=== PATIENT | female | born 1940 | race Two or more races ===

== ENCOUNTER 2016-06-27 08:10 | Emergency (ER) | payer OTHER ==
[~2016-06-27] VITALS: Ht 157.5 cm; Wt 90.7 kg
[~2016-06-27 08:10] MED LIST: ESOM40CA39 PO; FLUOXETINE PO; FLUT500M6; FURO40TA4 PO; KLORCON; METF-312 PO; METFORMIN; METO50TA7 PO; NITR0.4D10; SIMV20TA90 PO; SPIR25TA88 PO
[2016-06-27 10:30] VITALS: BP 141/96
[2016-06-27] MEDS ORDERED: ONDANSETRON ODT 4 MG TAB PO ONE (11:15)
[2016-06-27] MEDS ORDERED: KETOROLAC TROMETH 60MG/2ML VIAL IM ONE (11:15)
== END 2016-06-27 13:13 | disposition home or self-care (01) ==
LOC: ER 08:10 → EDBD 08:10 → ER 13:13
DX: S32.019A Unspecified fracture of first lumbar vertebra, initial encounter for closed fracture (principal); M79.1 Myalgia; M43.16 Spondylolisthesis, lumbar region; I48.91 Unspecified atrial fibrillation; J45.909 Unspecified asthma, uncomplicated; I11.0 Hypertensive heart disease with heart failure; I50.9 Heart failure, unspecified; E78.5 Hyperlipidemia, unspecified; I25.2 Old myocardial infarction; Z88.6 Allergy status to analgesic agent; Z88.0 Allergy status to penicillin; W19.XXXA Unspecified fall, initial encounter; Y93.89 Activity, other specified; Y99.8 Other external cause status; Y92.89 Other specified places as the place of occurrence of the external cause
CPT/HCPCS: 72100; 96372; 99284; J1885; Q0162

== ENCOUNTER 2016-06-29 15:17 | Emergency (ER) | payer OTHER ==
[~2016-06-29] VITALS: Ht 157.5 cm; Wt 68.0 kg
[2016-06-29 15:38] VITALS: BP 165/90
== END 2016-06-29 16:33 | disposition left against medical advice (07) ==
LOC: ER 15:17 → EDBD 15:17 → ER 16:33
DX: R06.02 Shortness of breath (principal); Z53.21 Procedure and treatment not carried out due to patient leaving prior to being seen by health care provider
CPT/HCPCS: 93005

== ENCOUNTER 2018-08-17 10:19 | Inpatient (IN) | payer OTHER ==
[~2018-08-17] VITALS: Ht 157.5 cm; Wt 100.6 kg
--- NOTE | 2018-08-17 08:15 | NUR ---
CPAP Patient reports the use of an CPAP device nightly at home. Requests that APAP therapy be continued while hospitalized. Paged On-call hospitalist, Raiza Ames, to inform of patients requests for CPAP. Orders received to begin CPAP therapy during hours of sleep. RT notified of new order.
[~2018-08-17 10:19] MED LIST changes: +MET5XLT PO; -METF-312 PO; +METF-370 PO; -METO50TA7 PO
[2018-08-17] MEDS ORDERED: FUROSEMIDE 40 MG/4 ML VIAL IV ONE (10:45)
[2018-08-17 11:15] LABS: Basophils # (auto) 0.1 uL; Basophils % (auto) 1.1 % (0.0-2.0); Eosinophils # (auto) 0.2 uL; Hematocrit 35.1 % (36.0-46.0); Hemoglobin 11.1 g/dL (12.2-16.2); Lymphocytes % (auto) 13.1 % (10.0-50.0); Mean Corpuscular Hemoglobin 28.6 pg (28.0-32.0); Mean Corpuscular Hgb Conc. 31.5 g/dL (32.0-36.0); Mean Corpuscular Volume 90.7 fL (80.0-100.0); Monocytes # (auto) 0.4 uL; Monocytes % (auto) 5.5 % (0.0-12.0); Neutrophils % (auto) 78.3 % (37.0-80.0); Platelet Count (auto) 211 10^3/uL (140-450); Red Blood Cells 3.86 10^6/uL (4.0-5.20); Red Cell Distribution Width 14.5 % (11.8-14.3); White Blood Cell 7.6 10^3/uL (4.4-10.8)
[2018-08-17 11:32] LABS: Alanine Aminotransferase 18 U/L (13-56); Albumin 3.5 g/dL (3.4-5.0); Anion Gap 6 (5-15); Aspartate Aminotransferase 13 U/L (15-37); BUN/Creatinine Ratio 28.7; Blood Urea Nitrogen 31 mg/dL (7-18); Calcium 8.4 mg/dL (8.5-10.1); Carbon Dioxide 26 mmol/L (21-32); Chloride 110 mmol/L (98-107); GFR African American 63 mL/min; GFR Non-African American 52 mL/min; Glucose 90 mg/dL (74-106); Magnesium 2.6 mg/dL (1.6-2.6); Potassium 4.5 mmol/L (3.5-5.1); Sodium 142 mmol/L (136-145)
[2018-08-17 11:37] LABS: Alkaline Phosphatase 107 U/L (45-117); Bilirubin, Total 0.7 mg/dL (0.2-1.0); Total Protein 6.6 g/dL (6.4-8.2)
[2018-08-17] MEDS ORDERED: ONDANSETRON HCL 4 MG/2 ML VIAL IV PRN (13:45)
[2018-08-17] MEDS ORDERED: DEXTROSE (50%) 50ML SYRG IV PRN (13:45)
[2018-08-17] MEDS ORDERED: MORPHINE SULF INJ 2 MG/ML SYRINGE 1ML IV PRN (13:45)
[2018-08-17] MEDS ORDERED: NITROGLYCERIN 0.4 MG SL TAB SL PRN (13:45)
[2018-08-17 13:53] LABS: Urine Bacteria NONE SEEN /hpf (None Seen); Urine Blood Negative /uL (Negative); Urine Specific Gravity 1.008 (1.001-1.035); Urine WBC 1 /hpf (0 - 5)
[2018-08-17] MEDS ORDERED: IOHEXOL 350 MG/ML 100ML IJ ONE (14:02)
[2018-08-17 16:00] VITALS: BP 116/60
--- NOTE | 2018-08-17 16:10 | NUR ---
Telemetry admit from ER KAILYNNAHID admitted to Telemetry unit after SBAR received. Patient oriented to Marquise Perez, primary RN, unit, room, bed, and unit policies regarding patient care and visiting hours. Patient now on continuous telemetry monitoring, tele box # 11 and telemetry reading on arrival to unit is [id number]. Patient placed on bedside oxygen, weighed by bedscale and encouraged to call if they need something. All questions and concerns addressed, patient verbalized understanding.
[2018-08-17 16:30] VITALS: BP 116/60
[2018-08-17] MEDS: InsuLIN REG 1unit/0.01ml Soln (100units/ml) SC SCH ×2 (17:00→21:25)
[2018-08-17] MEDS: ACCU-CHEK COMFORT CURVE STRIP VI SCH ×2 (17:59→21:25)
[2018-08-17] MEDS: SPIRONOLACTONE 25 MG TAB PO SCH (18:22)
[2018-08-17] MEDS: FUROSEMIDE 20 MG TAB PO SCH (18:23)
[2018-08-17 18:40] LABS: Creatine Kinase IFCC 49 U/L (26-192)
--- NOTE | 2018-08-17 18:45 | NUR ---
Paged Dr. Phillips regarding cardiology consult for Dr. Brooke. Found out that Dr. Brooke is not available during the weekend, asking if he wanted another acetone button paster to be called in. Waiting for call back.
--- NOTE | 2018-08-17 19:01 | NUR ---
Dr. Phillips returned call, orders received. Call cardiology consult to Dr. Pickett.
--- NOTE | 2018-08-17 19:30 | NUR ---
OPENING SHIFT NOTE: Assumed care of patient. Patient sitting up in bed A&Ox4. On 4lmp o2 via NC. Patient reports feeling lightheaded with activity but is able to ambulate to the bathroom with standby assist. Patient experiences significant SOB with activity and when lying flat. Patient denies pain at this time. POC discussed with patient, who verbalizes understanding. Patient instructed to call for assistance when needed. Patient verbalizes understanding. Bed left in low locked position and bed alarm turned on. Will continue to monitor PRN.
[2018-08-17] MEDS: ATORVASTATIN 20 MG TAB PO SCH (21:24)
[2018-08-17 22:00] VITALS: BP 117/69
--- NOTE | 2018-08-18 | NUR ---
Patient reports a history of falls. However, declines staff assistance with ambulation. Patient prefers to ambulate independently.
--- NOTE | 2018-08-18 00:01 | NUR ---
Patient NPO at 0000 for possible heart cath tomorrow. Patient verbalizes understanding of NPO order.
[2018-08-18 00:07] LABS: Creatine Kinase IFCC 57 U/L (26-192)
[2018-08-18 03:36] VITALS: BP 117/69
[2018-08-18 04:37] VITALS: BP 111/65
[2018-08-18] MEDS: SPIRONOLACTONE 25 MG TAB PO SCH (05:51)
[2018-08-18] MEDS: FUROSEMIDE 20 MG TAB PO SCH (05:51)
[2018-08-18] MEDS: InsuLIN REG 1unit/0.01ml Soln (100units/ml) SC SCH ×4 (05:52→22:00)
[2018-08-18] MEDS: ACCU-CHEK COMFORT CURVE STRIP VI SCH ×4 (05:52→22:16)
--- NOTE | 2018-08-18 07:10 | NUR ---
RECEIVED REPORT FROM NIGHT RN AND ASSUMED CARE.
[2018-08-18 08:20] VITALS: BP 107/60
--- NOTE | 2018-08-18 08:30 | NUR ---
Respiratory note: PT IS OFF APAP. HR 83, RR 18, POX 94% ON 4L/M NC. NO SOB OR DISTRESS NOTED.
[2018-08-18] MEDS ORDERED: POTASSIUM CHL 10 Meq TABLET PO SCH (10:00)
[2018-08-18] MEDS ORDERED: METOPROLOL SUCCINATE XL 50 MG TAB PO SCH (10:00)
--- NOTE | 2018-08-18 10:15 | NUR ---
DR RODRIGUEZ AT BEDSIDE DISCUSSING WITH PT CARE PLAN, NO STRESS NOTED OR C/O PAIN STATED, CALL LIGHT WITHIN REACH.
--- NOTE | 2018-08-18 12:53 | NUR ---
DR TROY HERE TO SEE PT, POSS PT WILL BE D/C HOME TOMORROW. Addendum: 08/18/18 at 1653 by PURA NORIEGA RN RN DR PATINO HERE TO SEE PT, POSS PT WILL BE D/C HOME TOMORROW.
[2018-08-18 12:59] VITALS: BP 107/68
[2018-08-18 16:06] VITALS: BP 114/63
[2018-08-18] MEDS: FUROSEMIDE 40 MG/4 ML VIAL IV SCH (18:08)
--- NOTE | 2018-08-18 18:18 | NUR ---
UP TO REST ROOM AND THEN SITTING UP IN CHAIR, NO STRESS NOTED OR SOB, CALL LIGHT WITHIN REACH, INSTRUCTED TO CALL FRO ASSISTANCE IF NEEDED.
--- NOTE | 2018-08-18 19:01 | NUR ---
Patient care and report handed off to Lelo OLIVERA
--- NOTE | 2018-08-18 19:30 | NUR ---
Opening Shift Note Assumed care of patient, awake and alert x4. Patient noted sitting on the chair on 4L NC. Patient denies shortness of breath/pain at this time. Instructed on plan of care and to call for assistance as needed. Bed is locked in lowest position, side rails x 2 are up, call light is within reach, and bed alarm is on. Addendum: 08/18/18 at 2028 by SUPRIYA ELLIS RN RN Opening Shift Note Assumed care of patient, awake and alert x4. Patient noted sitting on the chair on 4L NC. Patient denies shortness of breath/pain at this time. Instructed on plan of care and to call for assistance as needed. Call light is within reach. Instructed patient to call us when she is ready to get back in bed, patient verbalized understanding.
--- NOTE | 2018-08-18 20:15 | NUR ---
PATIENT BACK IN BED Assisted patient back in bed. Patient noted to have mild shortness of breath with exertion. Patient is now sitting in bed in high fowlers position, on 4L NC. No S/S of distress noted. Instructed patient to call as needed. Bed is locked in lowest position, side rails x 2 are up, call light is within reach, and bed alarm is on.
[2018-08-18 21:50] VITALS: BP 118/78
[2018-08-18] MEDS: ATORVASTATIN 20 MG TAB PO SCH (22:10)
[2018-08-18] MEDS: POTASSIUM CHL 10 Meq TABLET PO SCH (22:10)
--- NOTE | 2018-08-18 22:21 | NUR ---
RT PAGED RT paged to place patient on CPAP.
--- NOTE | 2018-08-18 22:35 | NUR ---
PATIENT PLACED ON CPAP Patient placed on CPAP. Patient is on continuous oxygen monitoring oxygen saturation is 97% on 4L NC. Patient is semi fowlers position, with bed locked in lowest position, side rails x 2 are up, call light is within reach, and bed alarm is on. No S/S of distress/SOB or pain noted at this time.
--- NOTE | 2018-08-19 02:46 | NUR ---
Rounds Patient is sleeping in bed with even and unlabored respirations. Patient is on CPAP and continuous oxygen monitoring, 02: 98%. No S/S of distress/SOB or pain noted. Bed is locked in lowest position, side rails x 2 are up, call light is within reach, and bed alarm is on.
[2018-08-19 04:56] VITALS: BP 122/73
[2018-08-19 05:45] LABS: Calcium 8.9 mg/dL (8.5-10.1)
[2018-08-19 05:55] LABS: BUN/Creatinine Ratio 24.8
[2018-08-19] MEDS: FUROSEMIDE 40 MG/4 ML VIAL IV SCH (06:33)
[2018-08-19] MEDS: InsuLIN REG 1unit/0.01ml Soln (100units/ml) SC SCH ×2 (06:41→11:30)
[2018-08-19] MEDS: ACCU-CHEK COMFORT CURVE STRIP VI SCH ×2 (06:41→11:53)
--- NOTE | 2018-08-19 06:45 | NUR ---
Respiratory note: ARRIVED IN PT'S ROOM TO FIND PT OFF CPAP IN THE BATHROOM. RN AT BEDSIDE, STATING PT IS DOING GOOD. NO SIGNS OR SYMPTOMS OF RESPIRATORY DISTRESS NOTED AT THIS TIME.
--- NOTE | 2018-08-19 07:10 | NUR ---
RECEIVED REPORT FROM DIGITAL MEASUREMENT ADVISOR RN AND ASSUMED CARE.
--- NOTE | 2018-08-19 07:27 | NUR ---
CLOSING SHIFT NOTE Endorsed patient care to Leatha OLIVERA.
[2018-08-19 08:42] VITALS: BP 106/48
[2018-08-19] MEDS: POTASSIUM CHL 10 Meq TABLET PO SCH (09:44)
[2018-08-19] MEDS ORDERED: METOPROLOL SUCCINATE XL 50 MG TAB PO SCH (10:00)
--- NOTE | 2018-08-19 11:30 | NUR ---
UP TO CHAIR, TOLERATING WELL NO S/S SOB, OR PAIN STATED.
[2018-08-19 13:56] VITALS: BP 132/72
--- NOTE | 2018-08-19 14:41 | NUR ---
DR CASAREZ AT BEDSIDE TALKING TO PT, POSS WILL HOME TODAY AND WILL F/U WITH HER COMPUTER CONSULTANT AND WILL FOLLOW NEW PRESCRIPTION CHANGES.
[2018-08-19] MEDS ORDERED: MET5XLT PO (14:42)
[2018-08-19 14:54] VITALS: BP 132/72
--- NOTE | 2018-08-19 17:02 | NUR ---
Discharge instructions given as ordered. Encourage to follow up with PMD and national sales manager in one week as instructed. All questions and concerns addressed. Patient verbalized understanding. Medication reconciliation form completed and copy given to patient. IV removed with catheter intact, pressure dressing applied. Telemetry unit returned to [facility]. Patient taken to vehicle via wheelchair with all personal belongings, accompanied by staff and family member. No distress noted at time of departure.
== END 2018-08-19 17:02 | disposition home or self-care (01) | DRG 291 ==
LOC: ER 10:19 → EDBD 10:19 → TELE 14:00 → TELE-WESTW 16:12
PROVIDERS: ADMIT Internal Medicine; ATTEND Internal Medicine
PROC: 5A09357 Assistance with Respiratory Ventilation, Less than 24 Consecutive Hours, Continuous Positive Airway Pressure (ICD-10-PCS; principal; 2018-08-18)
PROC: 5A09357 Assistance with Respiratory Ventilation, Less than 24 Consecutive Hours, Continuous Positive Airway Pressure (ICD-10-PCS; 2018-08-19)
DX: I11.0 Hypertensive heart disease with heart failure (principal); J96.91 Respiratory failure, unspecified with hypoxia; I24.9 Acute ischemic heart disease, unspecified; J44.1 Chronic obstructive pulmonary disease with (acute) exacerbation; E66.2 Morbid (severe) obesity with alveolar hypoventilation; J98.11 Atelectasis; Z68.41 Body mass index [BMI] 40.0-44.9, adult; I50.33 Acute on chronic diastolic (congestive) heart failure; E11.9 Type 2 diabetes mellitus without complications; I48.91 Unspecified atrial fibrillation; R55 Syncope and collapse; I05.9 Rheumatic mitral valve disease, unspecified; I25.10 Atherosclerotic heart disease of native coronary artery without angina pectoris; Z82.49 Family history of ischemic heart disease and other diseases of the circulatory system; Z99.81 Dependence on supplemental oxygen; Z88.0 Allergy status to penicillin; Z88.5 Allergy status to narcotic agent
CPT/HCPCS: 36415; 71045; 71275; 80048; 80053; 81001; 82550; 82962; 83735; 83880; 84484; 85025; 93005; 93306; 94660; 94761; 96374; G0378

== ENCOUNTER 2018-09-19 08:27 | Inpatient (IN) | payer OTHER ==
[~2018-09-19] VITALS: Ht 157.5 cm; Wt 98.7 kg
[2018-09-19] VITALS (15 sets, daily range): BP systolic 97–132; BP diastolic 52–93
[~2018-09-19 08:27] MED LIST changes: -METFORMIN
[2018-09-19] MEDS ORDERED: SODIUM CHLORIDE 0.9% 1,000 ML IV ONE ×2 (08:54→10:00)
[2018-09-19] MEDS ORDERED: SODIUM CHLORIDE 0.9% 1,000 ML IVB ONE (08:54)
[2018-09-19 09:39] LABS: Alanine Aminotransferase 11 U/L (13-56); Albumin 3.4 g/dL (3.4-5.0); Anion Gap 9 (5-15); Aspartate Aminotransferase 10 U/L (15-37); BUN/Creatinine Ratio 19.7; Blood Urea Nitrogen 27 mg/dL (7-18); Calcium 8.7 mg/dL (8.5-10.1); Carbon Dioxide 26 mmol/L (21-32); Chloride 105 mmol/L (98-107); GFR African American 48 mL/min; GFR Non-African American 40 mL/min; Glucose 96 mg/dL (74-106); Magnesium 2.7 mg/dL (1.6-2.6); Potassium 3.6 mmol/L (3.5-5.1); Sodium 140 mmol/L (136-145)
[2018-09-19 09:44] LABS: Alkaline Phosphatase 101 U/L (45-117); Bilirubin, Total 0.6 mg/dL (0.2-1.0); Total Protein 6.6 g/dL (6.4-8.2)
[2018-09-19 10:14] LABS: Basophils # (auto) 0.1 uL; Eosinophils # (auto) 0.1 uL; Lymphocytes # (auto) 1.2 uL; Monocytes # (auto) 0.6 uL
[2018-09-19 10:22] LABS: Basophils % (auto) 1.4 % (0.0-2.0); Eosinophils % (auto) 1.3 % (0.0-7.0); Hematocrit 18.5 % (36.0-46.0); Lymphocytes % (auto) 12.9 % (10.0-50.0); Mean Corpuscular Hgb Conc. 30.7 g/dL (32.0-36.0); Mean Corpuscular Volume 94.3 fL (80.0-100.0); Monocytes % (auto) 6.5 % (0.0-12.0); Neutrophils # (auto) 7.5 uL; Neutrophils % (auto) 77.9 % (37.0-80.0); Nucleated Red Blood Cells % 0.2 %; Platelet Count (auto) 305 10^3/uL (140-450); Red Blood Cells 1.97 10^6/uL (4.0-5.20); Red Cell Distribution Width 16.8 % (11.8-14.3); White Blood Cell 9.7 10^3/uL (4.4-10.8)
[2018-09-19 11:23] LABS: Hemoglobin 5.7 g/dL (12.2-16.2)
[2018-09-19 12:37] LABS: Urine Bacteria NONE SEEN /hpf (None Seen); Urine Blood Negative /uL (Negative); Urine Specific Gravity 1.021 (1.001-1.035); Urine WBC 1 /hpf (0 - 5)
[2018-09-19 13:26] LABS: INR 1.23 (0.9-1.15); Partial Thromboplastin Time 27.9 sec (23.64-32.05)
[2018-09-19] MEDS ORDERED: METO-169 PO (15:28)
[2018-09-19] MEDS ORDERED: SPIR25TA8 PO (15:28)
[2018-09-19] MEDS ORDERED: UMEC1AER IN (15:36)
[2018-09-19] MEDS ORDERED: GLIP-218 PO (15:36)
[2018-09-19] MEDS ORDERED: RIVA20TA PO (15:36)
[2018-09-19] MEDS ORDERED: MORPHINE SULF INJ 2 MG/ML SYRINGE 1ML IV PRN (17:00)
[2018-09-19] MEDS ORDERED: NITROGLYCERIN 0.4 MG SL TAB SL PRN (17:00)
[2018-09-19] MEDS ORDERED: DEXTROSE (50%) 50ML SYRG IV PRN (17:30)
[2018-09-19] MEDS ORDERED: FUROSEMIDE 20 MG/2 ML VIAL IV ONE ×2 (18:00→22:00)
--- NOTE | 2018-09-19 21:00 | NUR ---
Admit to [facility] NAHID AVINA admitted to [facility] FROM ER via gurney on color television console monitor, and portable 02 2L NASAL CANULA. Patient transfered to bed, connected to unit monitoring and oxygen, and weighed by bedscale. Patient oriented to SHELDON EPSTEIN, primary RN, unit, room, bed, and unit policies regarding patient care and visiting hours. RAMIREZ HUNG TO GRAVITY ON BED RAIL. RIGHT AND LEFT WRIST IV - CLEAN/DRY/INTACT. All questions and concerns addressed, patient verbalized understanding. WILL CONTINUE TO MONITOR.
--- NOTE | 2018-09-19 21:51 | NUR ---
PAGED DR. Sary WEI IN REGARDS TO PATIENT REQUESTING CPAP AND RT TREATMENTS PRN. LEFT VOICE MAIL, AWAITING CALL BACK.
--- NOTE | 2018-09-19 21:55 | NUR ---
RECEIVED CALL BACK FROM MEDICAL BILLING INSTRUCTOR DR. ROGERS AND RECEIVED ORDERS TO RESUME CPAP AND RT PRN TREATMENTS. RT MADE AWARE AND PATIENT MADE AWARE.
[2018-09-19] MEDS: InsuLIN REG 1unit/0.01ml Soln (100units/ml) SC SCH (22:28)
[2018-09-19] MEDS: ACCU-CHEK COMFORT CURVE STRIP VI SCH (22:28)
[2018-09-20] VITALS (8 sets, daily range): BP systolic 92–127; BP diastolic 34–78
--- NOTE | 2018-09-20 00:31 | NUR ---
ROUNDS PATIENT IN BED SLEEPING WITH NO SIGNS OR SYMPTOMS OF SOB, PAIN OR DISTRESS. CURRENTLY ON CPAP, 02 SAT - 97%. REPOSITIONED FOR COMFORT. BED IN LOWEST POSITION, SIDE RAILS UP X2, CALL LIGHT WITHIN REACH. WILL CONTINUE TO MONITOR.
--- NOTE | 2018-09-20 04:17 | NUR ---
MORNING CARE PATIENT REFUSED MORNING CARE, LINEN AND GOWN CHANGE AT THIS TIME. REPOSITIONED FOR COMFORT. BED IN LOWEST POSITION, SIDE RAILS UP X2, CALL LIGHT WITHIN REACH. WILL CONTINUE TO MONITOR.
[2018-09-20 05:44] LABS: BUN/Creatinine Ratio 17.7; Calcium 8.1 mg/dL (8.5-10.1); Potassium 3.6 mmol/L (3.5-5.1)
[2018-09-20 05:47] LABS: Basophils # (auto) 0.1 uL; Basophils % (auto) 0.9 % (0.0-2.0); Eosinophils # (auto) 0.1 uL; Eosinophils % (auto) 1.2 % (0.0-7.0); Hematocrit 27.7 % (36.0-46.0); Hemoglobin 9.2 g/dL (12.2-16.2); Lymphocytes % (auto) 11.5 % (10.0-50.0); Mean Corpuscular Hgb Conc. 33.3 g/dL (32.0-36.0); Mean Corpuscular Volume 90.1 fL (80.0-100.0); Monocytes # (auto) 0.7 uL; Monocytes % (auto) 7.5 % (0.0-12.0); Neutrophils # (auto) 7.2 uL; Neutrophils % (auto) 78.9 % (37.0-80.0); Nucleated Red Blood Cells % 0.3 %; Platelet Count (auto) 195 10^3/uL (140-450); Red Blood Cells 3.08 10^6/uL (4.0-5.20); Red Cell Distribution Width 16.4 % (11.8-14.3); White Blood Cell 9.1 10^3/uL (4.4-10.8)
--- NOTE | 2018-09-20 05:48 | NUR ---
SPOKE WITH - SHALINI, UPDATED HIM ON PLAN OF CARE AND STATUS OF PATIENT.
[2018-09-20] MEDS: ACCU-CHEK COMFORT CURVE STRIP VI SCH ×4 (06:24→21:40)
[2018-09-20] MEDS: InsuLIN REG 1unit/0.01ml Soln (100units/ml) SC SCH ×4 (06:24→21:41)
--- NOTE | 2018-09-20 06:30 | NUR ---
END OF SHIFT PATIENT IN BED SLEEPING WITH NO SIGNS OR SYMPTOMS OF SOB, PAIN OR DISTRESS. CURRENTLY ON 2L 02 NASAL CANNULA, 02 SAT - 99%. REPOSITIONED FOR COMFORT. JAMES HUNG TO GRAVITY ON BED RAIL. LEFT AND RIGHT IV - CLEAN/DRY/INTACT. BED IN LOWEST POSITION, SIDE RAILS UP X2, CALL LIGHT WITHIN REACH.
--- NOTE | 2018-09-20 06:41 | NUR ---
RT NOTE: PRN BREATHING TX. NOT INDICATED AT THIS TIME. PT. DENIES ANY SOB. PT. HR 84, RR 20, POX 99% 2L N/C. PT. ADVISED TO NOTIFY RN IF BREATHING TX. IS NEEDED.
[2018-09-20] MEDS ORDERED: PANTOPRAZOLE 40 MG/10 ML VIAL INJ IV ONE (08:00)
--- NOTE | 2018-09-20 08:00 | NUR ---
GI CONSULT MD AT BEDSIDE. NEW ORDERS IN PLACE.
[2018-09-20] MEDS ORDERED: PANTOPRAZOLE 80 MG in SODIUM CHL 0.9% 60 ML IV ONE (08:15)
--- NOTE | 2018-09-20 08:30 | NUR ---
PT IN CHAIR. PATIENT OUT OF BED AND IN CHAIR WITH STAND BY ASSIST. PT EATING BREAKFAST IN CHAIR. CALL LIGHT WITHIN REACH.
[2018-09-20] MEDS: FLUoxetine HCL 20 MG CAP PO SCH (09:15)
[2018-09-20] MEDS: FUROSEMIDE 40 MG TAB PO SCH (09:16)
[2018-09-20] MEDS: SPIRONOLACTONE 25 MG TAB PO SCH (09:20)
[2018-09-20] MEDS: METOPROLOL SUCCINATE XL 50 MG TAB PO SCH (10:00)
--- NOTE | 2018-09-20 10:00 | NUR ---
DR. PORTILLO REGARDING PAIN MEDICATION FOR PATIENT, AWAITING CALL BACK.
[2018-09-20] MEDS: PANTOPRAZOLE 80 MG in SODIUM CHL 0.9% 60 ML IV SCH ×2 (10:11→18:13)
--- NOTE | 2018-09-20 12:35 | NUR ---
DR. PORTILLO REGARDING PAIN MEDICATION, AWAITING CALL BACK.
--- NOTE | 2018-09-20 14:05 | NUR ---
DR. PORTILLO REGARDING PAIN MEDICATION, AWAITING CALL BACK.
--- NOTE | 2018-09-20 16:05 | NUR ---
I.S. PATIENT GIVEN I.S. AND EDUCATED ON PURPOSE AND BENEFITS. PATIENT REACHING 500MLS ON INSPIRATION AND ABLE TO DO RETURN DEMONSTRATION PROPERLY.
[2018-09-20] MEDS ORDERED: ACETAMINOPHEN 325 MG TAB PO PRN (17:30)
--- NOTE | 2018-09-20 17:30 | NUR ---
DR. BALLARD AT BEDSIDE MD NOTIFIED OF PATIENTS STATUS, BEDSIDE ROUNDS COMPLETED. NEW ORDERS IN PLACE.
--- NOTE | 2018-09-20 19:45 | NUR ---
Opening Shift Note Assumed care of patient, awake and alert and oriented. Patient denies pain. No acute distress noted, vss: see spreadsheet. Instructed on POC and proposed sx for tomorrow. Instructed to call for assist PRN, will continue to monitor for changes frequently.
[2018-09-20] MEDS ORDERED: PHYTONADIONE ORAL Susp 10 mg/10ml PO ONE (21:15)
[2018-09-21] VITALS: BP 106/60
--- NOTE | 2018-09-21 00:06 | NUR ---
PATIENT NOTED TO DESAT TO 86% UPON ASSESSING CPAP MACHINE, NOTED TO BE DISCONNECTED, CONNECTED CPAP BACK AND PLACED PATIENT BACK ON. PULLED PATIENT UP IN BED WITH HOB ELEVATED SEMI-FOWLERS POSITION.OXYGENATION IMPROVED 93%
--- NOTE | 2018-09-21 03:51 | NUR ---
AM CARE COMPLETE BED BATH PROVIDED USING CHG WIPES AND WARM WASH CLOTHS, NEW GOWN PLACED ON PATIENT. REQUESTING TO SIT UP ON CHAIR, SB ASSIST NEEDED , PATIENT NOTED TO GET SLIGHTLY SOB WITH EXERTION BUT TOLERATING FAIRLY ON 2L NC. COMPLETE BED LINEN CHANGE DONE. PATIENT C/O UPPER NECK AND SHOULDER STIFFNESS, DECLINED PAIN MEDICATION. APPLIED TWO HOT PACKS TO UPPER BACK AND CALL LIGHT GIVEN TO PATIENT TO CALL WHENEVER READY TO GET BACK INTO BED. PATIENT VERBALIZES UNDERSTANDING.
[2018-09-21] MEDS: PANTOPRAZOLE 80 MG in SODIUM CHL 0.9% 60 ML IV SCH (05:00)
--- NOTE | 2018-09-21 05:00 | NUR ---
PRE-OP CHECK LIST COMPLETE AND IN HARD CHART.
[2018-09-21 05:43] LABS: Basophils # (auto) 0.1 uL; Basophils % (auto) 1.1 % (0.0-2.0); Eosinophils # (auto) 0.1 uL; Eosinophils % (auto) 1.4 % (0.0-7.0); Hematocrit 29.4 % (36.0-46.0); Hemoglobin 9.7 g/dL (12.2-16.2); Lymphocytes # (auto) 0.6 uL; Lymphocytes % (auto) 6.1 % (10.0-50.0); Mean Corpuscular Hemoglobin 29.9 pg (28.0-32.0); Mean Corpuscular Hgb Conc. 33.1 g/dL (32.0-36.0); Mean Corpuscular Volume 90.3 fL (80.0-100.0); Monocytes # (auto) 0.7 uL; Monocytes % (auto) 6.6 % (0.0-12.0); Neutrophils # (auto) 8.8 uL; Neutrophils % (auto) 84.8 % (37.0-80.0); Nucleated Red Blood Cells % 0.1 %; Platelet Count (auto) 208 10^3/uL (140-450); Red Blood Cells 3.26 10^6/uL (4.0-5.20); Red Cell Distribution Width 16.5 % (11.8-14.3); White Blood Cell 10.4 10^3/uL (4.4-10.8)
[2018-09-21 05:50] LABS: INR 1.05 (0.9-1.15); Partial Thromboplastin Time 21.6 sec (23.64-32.05)
[2018-09-21 06:00] LABS: BUN/Creatinine Ratio 11.8; Calcium 8.1 mg/dL (8.5-10.1); Magnesium 2.5 mg/dL (1.6-2.6); Potassium 3.6 mmol/L (3.5-5.1)
[2018-09-21] MEDS: ACCU-CHEK COMFORT CURVE STRIP VI SCH ×3 (06:22→17:59)
[2018-09-21] MEDS: InsuLIN REG 1unit/0.01ml Soln (100units/ml) SC SCH ×3 (06:22→17:00)
--- NOTE | 2018-09-21 06:58 | NUR ---
END OF SHIFT NOTE PATIENT RESTING IN BED WITH NO S/S OF DISTRESS/ SOB . HAS REMAINED STABLE THROUGHOUT THE NIGHT , NPO SINCE MIDNIGHT FOR PROCEDURE SCHEDULED TODAY.POX 99% ON 2L NC, RR 21, HR 111. CALL LIGHT WITHIN EASY REACH. WILL ENDORSE CARE TO DAY SHIFT RN.
[2018-09-21 07:45] VITALS: BP 100/48
--- NOTE | 2018-09-21 07:45 | NUR ---
Opening Shift Note Assumed care of patient @ 0730, laying in bed, eyes closed, arousable to voice, oriented x4. No S/S of distress/SOB or pain. Maintained and instructed patient NPO for endoscopy, verbalized understanding. See interventions for complete assessment. Bed locked on low position , side rails up x2, bed alarms on at all times, call lees within reach, instructed on POC and to call for assist PRN, will continue to monitor for changes Q1hr and PRN.
--- NOTE | 2018-09-21 09:50 | NUR ---
Paged Dr Altman regarding patient's schedule procedure. Awaiting call back.
--- NOTE | 2018-09-21 10:06 | NUR ---
Spoke to Dr Altman over the phone, per Dr Agapito Espino will do the procedure.
[2018-09-21] MEDS: ALBUTEROL SULF 2.5 MG/0.5ML(0.5%) NEB SOLN NEB PRN ×2 (10:35→16:02)
--- NOTE | 2018-09-21 10:35 | NUR ---
Respiratory note: ASSESSED PATIENT FOR PRN TX. PATIENT STATED SHE WOULD LIKE A BREATHING TX. PATIENT RECEIVED TX WITHOUT ANY ADVERSE REACTIONS. PATIENT'S RR 17, SPO2 100%, HR 108. PATIENT WAS AWAKE AND ALERT. PATIENT WAS EDUCATED TO HAVE RT PAGED IF BREATHING TX IS NEEDED. JAROD BOSTON Addendum: 09/21/18 at 1118 by ALICE POLLOCK, RT RT JAROD Srinivasan NOTIFIED AND AWARE.
--- NOTE | 2018-09-21 11:36 | NUR ---
Unable to remove two rings on LT fingers and one ring on RT thumb, taped.
--- NOTE | 2018-09-21 11:48 | NUR ---
Dr Espino at bedside, updated on patient's status. Patient seen and examined. No new orders at this time.
[2018-09-21 12:00] VITALS: BP 111/60
--- NOTE | 2018-09-21 12:02 | NUR ---
Patient out of room for EGD. Parker RN informed unable to remove patient's rings. Parker verbalized understanding.
--- NOTE | 2018-09-21 12:13 | NUR ---
NUTRITION ASSESSMENT NOTES Please refer to link notes of nutrition screen form filed under the intervention section of the plan of care for further details. Est. Needs: 1500 kcal to 1950 kcal (15-20 kcal/kgBW), 50 gms to 60 gms pro (1.0-1.2 gms/kgIBW: 50 kg ). Will continue to monitor pertinent labs and reassess nutrient need prn Thank you. Addendum: 09/21/18 at [address] Amended: Links added.
[2018-09-21] MEDS ORDERED: SODIUM CHLORIDE LOCK 10 ML ONE (12:36)
[2018-09-21] MEDS ORDERED: LIDOCAINE VISCOUS 2% 15ML UD ONE (12:36)
[2018-09-21] MEDS ORDERED: diphenhdrAMINE HCL 50 MG/1 ML VL ONE (12:37)
[2018-09-21] MEDS: fentaNYL CITRATE 100 MCG/2 ML VL ONE ×2 (12:40→13:07)
[2018-09-21] MEDS: MIDAZOLAM HCL 5 MG/ML-1ML VIAL ONE ×2 (12:40→13:07)
[2018-09-21] MEDS ORDERED: GOLYTELY 4L KIT PO ONE (13:30)
--- NOTE | 2018-09-21 14:00 | NUR ---
Patient back to room s/p EGD, no S/S of SOB or pain, VS WNL, BP 128/42, HR 129, RR 24, oxygen saturation 98%. Will continue to monitor.
[2018-09-21] MEDS: SPIRONOLACTONE 25 MG TAB PO SCH (15:25)
[2018-09-21] MEDS: FUROSEMIDE 40 MG TAB PO SCH (15:26)
[2018-09-21] MEDS: FLUoxetine HCL 20 MG CAP PO SCH (15:33)
[2018-09-21] MEDS: METOPROLOL SUCCINATE XL 50 MG TAB PO SCH (15:33)
[2018-09-21 15:45] VITALS: BP 94/51
--- NOTE | 2018-09-21 16:12 | NUR ---
Dr Christy at bedside, updated on patient's status. Patient seen and examined. Discussed with patient's Parker plans for discharge. Family verbalized understanding.
--- NOTE | 2018-09-21 17:59 | NUR ---
Delatorre catheter dc'd Order to discontinue delatorre catheter. Delatorre dc'd with clean technique following deflation of balloon. Patient tolerated well with no complaints of pain. Continue care.
[2018-09-21 18:06] VITALS: BP 103/78
--- NOTE | 2018-09-21 19:00 | NUR ---
Paged bond clerk Electrical Logging Engineer [employer] and called back. Informed of Social Service Consult for Home Health Safety Evaluation. Received instruction to Fax order to [employer] [phone] and [employer] [phone] and give [employer] telephone number [phone] to family and patient can go home. Orders faxed to [employer] and [employer].
--- NOTE | 2018-09-21 19:15 | NUR ---
Paged Dr Christy and called back updated on patient's status. states "Don't worry about it, send patient home, I already set up home health, they will go and check her tomorrow."
--- NOTE | 2018-09-21 19:20 | NUR ---
IV removal LT upper arm IV discontinued with sterile technique, catheter fully intact. Pressure dressing applied to site. Patient tolerated procedure well. Discharged with aftercare instructions per MD.
--- NOTE | 2018-09-21 19:30 | NUR ---
Patient bathe/linen change Patient given sponge bath per request. Skin integrity assessed for any changes. Clothes changed. Patient repositioned for comfort.
--- NOTE | 2018-09-21 19:40 | NUR ---
Discharge packet and instructions given to patient and . Verbalized understanding.
--- NOTE | 2018-09-21 19:55 | NUR ---
Discharge instructions given as ordered. Encourage to follow up with PMD and Gastroenterology as instructed. All questions and concerns addressed. Patient and verbalized understanding. IV removed with catheter intact, pressure dressing applied, delatorre catheter removed. Patient taken to vehicle via wheelchair with all personal belongings, accompanied by staff and . No distress noted at time of departure. HR 130, BP 120/73, RR 21, oxygen saturation 98% at 2 LPM oxygen via nasal cannula.
[2018-09-22] MEDS ORDERED: GOLYTELY 4L KIT PO ONE (06:00)
--- NOTE | 2018-09-22 12:01 | NUR ---
0/c note : I called [employer] and spoke to Raiza and she stated she did not receive any paperwork. I called ICU and spoke to Adelita and she will fax over hh packet to [employer], I will call back in 45 min to see if the fax was completed
--- NOTE | 2018-09-22 15:04 | NUR ---
I spoke to US in ICU, Dilcia and she stated she faxed hh packet to [facility]. I spoke to Raiza at [facility] and she received packet and spoke to pt's and informed him they would see pt on Monday
== END 2018-09-21 20:03 | disposition home health service (06) | DRG 378 ==
LOC: EDBD 08:27 → ER 08:45 → TELE 08:46 → DOU IN ICU 21:02
PROVIDERS: ADMIT Internal Medicine; ATTEND Internal Medicine
PROC: 30233N1 Transfusion of Nonautologous Red Blood Cells into Peripheral Vein, Percutaneous Approach (ICD-10-PCS; 2018-09-19)
PROC: 5A09357 Assistance with Respiratory Ventilation, Less than 24 Consecutive Hours, Continuous Positive Airway Pressure (ICD-10-PCS; 2018-09-19)
PROC: 5A09357 Assistance with Respiratory Ventilation, Less than 24 Consecutive Hours, Continuous Positive Airway Pressure (ICD-10-PCS; 2018-09-20)
PROC: 0DJ08ZZ Inspection of Upper Intestinal Tract, Via Natural or Artificial Opening Endoscopic (ICD-10-PCS; principal; 2018-09-21 12:32)
DX: K92.2 Gastrointestinal hemorrhage, unspecified (principal); J44.1 Chronic obstructive pulmonary disease with (acute) exacerbation; N17.9 Acute kidney failure, unspecified; E44.1 Mild protein-calorie malnutrition; I13.0 Hypertensive heart and chronic kidney disease with heart failure and stage 1 through stage 4 chronic kidney disease, or unspecified chronic kidney disease; D62 Acute posthemorrhagic anemia; E11.21 Type 2 diabetes mellitus with diabetic nephropathy; I25.10 Atherosclerotic heart disease of native coronary artery without angina pectoris; N18.9 Chronic kidney disease, unspecified; K21.9 Gastro-esophageal reflux disease without esophagitis; I50.9 Heart failure, unspecified; E11.22 Type 2 diabetes mellitus with diabetic chronic kidney disease; F32.9 Major depressive disorder, single episode, unspecified; E66.9 Obesity, unspecified; E78.5 Hyperlipidemia, unspecified; I48.0 Paroxysmal atrial fibrillation; M15.9 Polyosteoarthritis, unspecified; Z80.3 Family history of malignant neoplasm of breast; Z80.0 Family history of malignant neoplasm of digestive organs; I25.2 Old myocardial infarction; Z79.01 Long term (current) use of anticoagulants; Z82.49 Family history of ischemic heart disease and other diseases of the circulatory system; Z87.11 Personal history of peptic ulcer disease; Z87.891 Personal history of nicotine dependence; Z68.39 Body mass index [BMI] 39.0-39.9, adult; Z88.0 Allergy status to penicillin; Z79.1 Long term (current) use of non-steroidal anti-inflammatories (NSAID); Z88.5 Allergy status to narcotic agent
CPT/HCPCS: 36415; 36430; 51702; 71046; 80048; 80053; 81001; 82962; 83735; 83880; 84443; 84484; 85025; 85379; 85610; 85730; 86850; 86900; 86901; 86920; 87081; 93005; 94640; 94660; 94761; 96361; 96374; C9113; G0378; J1815; J2250

== ENCOUNTER 2019-02-07 10:06 | Inpatient (IN) | payer OTHER ==
[~2019-02-07] VITALS: Ht 162.6 cm; Wt 101.1 kg
[~2019-02-07 10:06] MED LIST changes: -FLUT500M6; +GLIP-218 PO; -KLORCON; -MET5XLT PO; -METF-370 PO; +METO-169 PO; -NITR0.4D10; +NITR0.4D3; +RIVA20TA PO; +SPIR25TA8 PO; -SPIR25TA88 PO; +UMEC1AER IN
[2019-02-07] MEDS ORDERED: IPRATROPIUM BROM 0.5 MG/2.5ML INH SOL NEB ONE (10:45)
[2019-02-07] MEDS ORDERED: LEVOFLOXACIN 500MG 100 ML IV ONE (10:45)
[2019-02-07] MEDS ORDERED: ALBUTEROL SULF 2.5 MG/0.5ML(0.5%) NEB SOLN NEB ONE (10:45)
[2019-02-07] MEDS ORDERED: methylPREDNISolone SOD SUCC 125 MG/2 ML VL IV ONE (10:45)
[2019-02-07 11:14] LABS: Basophils # (auto) 0.1 uL; Basophils % (auto) 0.8 % (0.0-2.0); Eosinophils # (auto) 0.1 uL; Eosinophils % (auto) 0.8 % (0.0-7.0); Hematocrit 38.1 % (36.0-46.0); Hemoglobin 12.7 g/dL (12.2-16.2); Lymphocytes # (auto) 0.9 uL; Lymphocytes % (auto) 9.6 % (10.0-50.0); Mean Corpuscular Hemoglobin 31.4 pg (28.0-32.0); Mean Corpuscular Hgb Conc. 33.2 g/dL (32.0-36.0); Mean Corpuscular Volume 94.5 fL (80.0-100.0); Monocytes # (auto) 0.6 uL; Monocytes % (auto) 6.4 % (0.0-12.0); Neutrophils # (auto) 7.8 uL; Neutrophils % (auto) 82.4 % (37.0-80.0); Platelet Count (auto) 185 10^3/uL (140-450); Red Blood Cells 4.03 10^6/uL (4.0-5.20); Red Cell Distribution Width 14.4 % (11.8-14.3); White Blood Cell 9.4 10^3/uL (4.4-10.8)
[2019-02-07 11:34] LABS: Albumin 3.6 g/dL (3.4-5.0); Calcium 9.1 mg/dL (8.5-10.1); Potassium 3.9 mmol/L (3.5-5.1)
[2019-02-07 11:42] LABS: BUN/Creatinine Ratio 18.2; Bilirubin, Total 0.6 mg/dL (0.2-1.0); Total Protein 7.1 g/dL (6.4-8.2)
[2019-02-07] MEDS ORDERED: ENOXAPARIN SOD 80 MG/0.8ML SYRINGE SC ONE (12:00)
[2019-02-07] MEDS ORDERED: ASPirin 81 mg TAB PO ONE (12:00)
[2019-02-07] MEDS ORDERED: PANTOPRAZOLE 40 MG/10 ML VIAL INJ IV ONE (13:00)
[2019-02-07] MEDS ORDERED: ALBUTEROL SULF 2.5 MG/0.5ML(0.5%) NEB SOLN NEB PRN (15:30)
[2019-02-07] MEDS ORDERED: DEXTROSE (50%) 50ML SYRG IV PRN (15:30)
[2019-02-07] MEDS ORDERED: MORPHINE SULF INJ 2 MG/ML SYRINGE 1ML IV PRN ×2 (15:30)
[2019-02-07] MEDS ORDERED: ONDANSETRON HCL 4 MG/2 ML VIAL IV PRN (15:30)
[2019-02-07] MEDS ORDERED: IPRATROPIUM BROM 0.5 MG/2.5ML INH SOL NEB PRN (15:30)
[2019-02-07] MEDS ORDERED: HYDROcodone-ACET 5/325MG TAB PO PRN (15:30)
[2019-02-07] MEDS: ACCU-CHEK COMFORT CURVE STRIP VI SCH ×2 (17:30→23:18)
[2019-02-07] MEDS: InsuLIN REG 1unit/0.01ml Soln (100units/ml) SC SCH ×2 (17:40→22:00)
[2019-02-07] MEDS: FUROSEMIDE 40 MG TAB PO SCH (18:00)
[2019-02-07] MEDS: ALBUTEROL SULF 2.5 MG/0.5ML(0.5%) NEB SOLN HHN SCH (19:05)
--- NOTE | 2019-02-07 20:42 | NUR ---
Telemetry admit from ER KAILYNNAHID admitted to Telemetry unit after SBAR received. Patient oriented to SUPRIYA ELLIS, primary RN, unit, room, bed, and unit policies regarding patient care and visiting hours. Patient now on continuous telemetry monitoring, tele box # 57 and telemetry reading on arrival to unit is atrial fibrillation. Patient placed on bedside oxygen, weighed by bedscale and encouraged to call if they need something. All questions and concerns addressed, patient verbalized understanding. Bed is locked in lowest position, side rails x 2 are up, call light is within reach, and bed alarm is on.
--- NOTE | 2019-02-07 21:19 | NUR ---
CHEST PAIN Patient ambulated from the bed to the toilet with standby assistance. Upon returning to side of the bed patient reports having chest tightness to the midsternal chest area scale 8/10. Patient denies radiation or nausea at this time. Patient reports shortness of breath, however patient states, she is "always short of breath." Offered patient nitroglycerin but patient is refusing nitroglycerin at this time. Patient reports the chest pain is from the exertion and reports "I will feel better once I am on the CIPAP." Vital signs are the following: BP: 97.3, HEART RATE: 70, RR: 17, OXYGEN SATURATION 95% ON 3L NC, and TEMP:97.5. EKG was performed which showed atrial fibrillation. EKG placed in hard chart.
[2019-02-07] MEDS: methylPREDNISolone SOD SUCC 40 MG/ML VL IV SCH (21:26)
--- NOTE | 2019-02-07 21:30 | NUR ---
REASSESSMENT: CHEST PAIN Patient is on CPAP with oxygen saturation at 95%. Patient reports her chest pain is now 5/10 and feels better. Patient is laying in bed with even and unlabored respirations. No signs/symptoms of distress noted at this time.
--- NOTE | 2019-02-07 21:41 | NUR ---
SPOKE WITH DR. ROGERS WITH PAIN MEDS Notified Dr. Rogers that patient is complaining of a dull headache pain scale 8/10 and that patient is requesting Tylenol. Received orders from Dr. Rogers for Tylenol 650mg every 6 hours as needed. Order read back and verified. Will carry out orders as received.
[2019-02-07 22:00] VITALS: BP 124/49
[2019-02-07 22:09] VITALS: BP 124/49
--- NOTE | 2019-02-08 00:12 | NUR ---
ROUNDS Patient is laying supine, head of the bed at 30 degrees, eyes closed, with even and unlabored respirations noted. Patient is on CPAP with oxygen saturation at 94%. No signs/symptoms of distress or pain noted at this time. Bed is locked in lowest position, side rails x 2 are up, call light is within reach, and bed alarm is on.
[2019-02-08] MEDS: ALBUTEROL SULF 2.5 MG/0.5ML(0.5%) NEB SOLN HHN SCH ×5 (00:19→23:48)
[2019-02-08] MEDS: IPRATROPIUM BROM 0.5 MG/2.5ML INH SOL HHN SCH ×5 (00:19→23:48)
[2019-02-08] MEDS: ACETAMINOPHEN 325 MG TAB PO PRN (00:35)
--- NOTE | 2019-02-08 00:40 | NUR ---
ROUNDS Patient is complaining of a dull headache (pain scale 5/10), patient has been medicated for headache, see eMAR. Patient denies chest pain at this time. Patient is laying supine in bed with even and unlabored respirations. Head of the bed is at 30 degrees, patient is on CPAP, and oxygen saturation is 94%. Bed is locked in lowest position, side rails x 3 are up, call light is within reach, and bed alarm is on.
[2019-02-08 05:00] VITALS: BP 91/60
[2019-02-08] MEDS: FUROSEMIDE 40 MG TAB PO SCH ×2 (06:23→17:45)
[2019-02-08] MEDS: ACCU-CHEK COMFORT CURVE STRIP VI SCH ×4 (06:32→21:13)
[2019-02-08] MEDS: InsuLIN REG 1unit/0.01ml Soln (100units/ml) SC SCH ×5 (06:32→21:12)
--- NOTE | 2019-02-08 07:50 | NUR ---
Opening Shift Note Assumed care of patient, awake and alert laying in bed. Patient reports sob with exertion. Patient currently on 3L O2 via NC. No s/s of distress noted/reported. Bed on low position and locked. Patient Instructed on POC and to call for assistance PRN, will continue to monitor for changes Q1hr and PRN. Signed: 02/08/19 at 1557 by DALTON JIMENEZ SN <Co-Signature Required> Co-Signed: 02/08/19 at 1557 by Debbie Hall RN
[2019-02-08 08:00] VITALS: BP 127/70
[2019-02-08 09:00] VITALS: BP 127/70
[2019-02-08] MEDS: methylPREDNISolone SOD SUCC 40 MG/ML VL IV SCH ×2 (09:31→21:12)
[2019-02-08] MEDS: PANTOPRAZOLE 40 MG TAB PO SCH (09:31)
[2019-02-08] MEDS: METOPROLOL SUCCINATE XL 50 MG TAB PO SCH (09:32)
[2019-02-08] MEDS: FLUoxetine HCL 20 MG CAP PO SCH (09:32)
[2019-02-08] MEDS: SPIRONOLACTONE 25 MG TAB PO SCH (09:33)
[2019-02-08] MEDS: LEVOFLOXACIN 500MG 100 ML IV SCH (09:33)
[2019-02-08] MEDS ORDERED: ATORVASTATIN 20 MG TAB PO SCH (10:00)
--- NOTE | 2019-02-08 11:04 | NUR ---
collected and sent UA to lab via bullet system .
[2019-02-08 11:25] LABS: Urine Bacteria NONE SEEN /hpf (None Seen); Urine Blood Negative /uL (Negative); Urine Hyaline Cast FEW /lpf (0 - 2); Urine Mucus FEW (None Seen); Urine Specific Gravity 1.008 (1.001-1.035); Urine WBC 1 /hpf (0 - 5)
--- NOTE | 2019-02-08 12:40 | NUR ---
DR. CONNOR AT BEDSIDE Signed: 02/08/19 at 1602 by DALTON JIMENEZ SN <Co-Signature Required> Co-Signed: 02/08/19 at 1602 by Debbie Hall RN
[2019-02-08 13:00] VITALS: BP 113/62
[2019-02-08] MEDS: ASPirin-EC 81 mg tab PO SCH (13:00)
[2019-02-08 13:48] LABS: Cholesterol 130 mg/dL (< 200)
[2019-02-08 13:51] LABS: HDL Cholesterol 53 mg/dL (40-59); LDL Cholesterol 66 mg/dL (< 100); Triglycerides 70 mg/dL (< 150)
--- NOTE | 2019-02-08 15:27 | NUR ---
Paged Dr. Pickett for order clarifications. Awaiting call back. Addendum: 02/08/19 at 1551 by Debbie Hall RN MD ordered for diet to be resumed for today. NPO after midnight. Orders read back and verified.
--- NOTE | 2019-02-08 16:16 | NUR ---
DR. NELLIE Muse AT BEDSIDE, UPDATING PATIENT ON POC.
[2019-02-08 17:00] VITALS: BP 108/61
[2019-02-08] MEDS: ATORVASTATIN 20 MG TAB PO SCH (17:47)
--- NOTE | 2019-02-08 18:34 | NUR ---
CLOSING NOTE Patient is sitting on chair having dinner, on 4L NC. No S/S of distress SOB, or pain noted/reported. Call light within reach. Patient instructed on calling for assistance. Bed at lowest locked position and juan jose light within reach Will give report to NOC nurse. Signed: 02/08/19 at 1839 by DALTON JIMENEZ SN <Co-Signature Required> Co-Signed: 02/08/19 at 1839 by Debbie Hall RN
[2019-02-08 22:00] VITALS: BP 132/74
[2019-02-09] MEDS: NITROGLYCERIN 0.4 MG SL TAB SL PRN ×3 (02:40→03:03)
--- NOTE | 2019-02-09 03:10 | NUR ---
PATIENT HAD EPISODE OF CHEST PRESSURE RADIATING TO NECK 10/10 PAIN SCALE, GIVEN A TOTAL OF 3 NITROGLYCERIN TABS SL PAIN DECREASE TO 8/10 THEN 5/10. CALLED CAPTAIN ROOM SERVICE, SPOKE WITH DR. ROGERS WITH NEW ORDER TO GET TROPONIN STAT AND HYDROMORPHONE 0.4MG IV X1. EKG DONE AND READ RESULT TO MD. PATIENT AGREED TO WAIT AND SEE HOW HER PAIN IS, GIVEN ACETAMINOPHEN 650MG PO. DID NOT GIVE HYDROMORPHONE DUE TO EXTENSIVE HISTORY OF HALLUCINATIONS WITH MORPHINE, CODEINE AND HYDROCODONE. B/P 110/67(1ST NITRO), 109/66(2ND NITRO), 114/68 (3RD NITRO), LAST B/P CHECK 99/61.
[2019-02-09] MEDS ORDERED: HYDROmorphone HCL 2 MG/ML VL IV ONE (03:30)
--- NOTE | 2019-02-09 03:45 | NUR ---
MORPHINE AND HYDROCODONE DISCONTINUED DUE TO PATIENT WILL GET SEVERE HALLUCINATIONS WITH THESE MEDICATIONS.
[2019-02-09 05:00] VITALS: BP 84/48
[2019-02-09] MEDS: FUROSEMIDE 40 MG TAB PO SCH ×3 (05:53→18:29)
[2019-02-09] MEDS: InsuLIN REG 1unit/0.01ml Soln (100units/ml) SC SCH ×4 (06:02→21:08)
[2019-02-09] MEDS: ACCU-CHEK COMFORT CURVE STRIP VI SCH ×4 (06:02→21:08)
[2019-02-09] MEDS: ALBUTEROL SULF 2.5 MG/0.5ML(0.5%) NEB SOLN HHN SCH ×4 (07:03→23:48)
[2019-02-09] MEDS: IPRATROPIUM BROM 0.5 MG/2.5ML INH SOL HHN SCH ×4 (07:03→23:49)
[2019-02-09 08:00] VITALS: BP 105/52
[2019-02-09] MEDS ORDERED: SODIUM CHLORIDE 0.9% 1,000 ML IV SCH (09:00)
[2019-02-09 09:07] VITALS: BP 105/52
[2019-02-09] MEDS: ATORVASTATIN 20 MG TAB PO SCH (10:14)
[2019-02-09] MEDS: ASPirin-EC 81 mg tab PO SCH (10:14)
[2019-02-09] MEDS: PANTOPRAZOLE 40 MG TAB PO SCH (10:14)
[2019-02-09] MEDS: ACETAMINOPHEN 325 MG TAB PO PRN ×2 (10:15→19:40)
[2019-02-09] MEDS: METOPROLOL SUCCINATE XL 50 MG TAB PO SCH (10:15)
[2019-02-09] MEDS: LEVOFLOXACIN 500MG 100 ML IV SCH (10:16)
[2019-02-09] MEDS: FLUoxetine HCL 20 MG CAP PO SCH (10:16)
[2019-02-09] MEDS: methylPREDNISolone SOD SUCC 40 MG/ML VL IV SCH ×2 (10:17→21:07)
[2019-02-09] MEDS: SPIRONOLACTONE 25 MG TAB PO SCH (10:21)
--- NOTE | 2019-02-09 10:55 | NUR ---
IV removal Patient's IV is leaking and patient is c/o pain 2/10. IV DC'd with clean sterile technique, catheter fully intact. Pressure dressing applied to site. Patient tolerated well.
--- NOTE | 2019-02-09 12:04 | NUR ---
IV ATTEMPTED IV INSERTION ON LEFT UPPER ARM X1.NO ACCESS OBTAINED. ATTEMPTED IV INSERTION ON LEFT FA X1, NO ACCESS OBTAINED. PATIENT TOLERATED WELL. WILL ATTEMPT AGAIN. Addendum: 02/09/19 at 1502 by Debbie Hall RN HAILEY OLIVERA PLACED AN IV, 22G ON THE LEFT FA, ON FIRST ATTEMPT. PATIENT TOLERATED WELL.
[2019-02-09 13:07] VITALS: BP 101/68
[2019-02-09 17:00] LABS: INR 1.14 (0.9-1.15)
[2019-02-09 17:59] VITALS: BP 107/66
--- NOTE | 2019-02-09 18:10 | NUR ---
PAGED RT FOR PRN BREATHING TX. PATIENT IS REQUESTING TREATMENT.
--- NOTE | 2019-02-09 18:36 | NUR ---
CLOSING NOTE Patient is sitting on chair having dinner, on 4L NC. No S/S of distress SOB, or pain noted/reported. Call light within reach. Patient instructed on calling for assistance. Bed at lowest locked position and juan jose light within reach Will give report to NOC nurse. Signed: 02/09/19 at 1837 by DALTON JIMENEZ SN <Co-Signature Required> Co-Signed: 02/09/19 at 1837 by Debbie Hall RN
[2019-02-09 22:00] VITALS: BP 119/68
[2019-02-10] VITALS (7 sets, daily range): BP systolic 105–121; BP diastolic 47–81
[2019-02-10] MEDS: FUROSEMIDE 40 MG TAB PO SCH ×2 (06:00→18:17)
[2019-02-10] MEDS: InsuLIN REG 1unit/0.01ml Soln (100units/ml) SC SCH ×4 (06:24→21:06)
[2019-02-10] MEDS: ACCU-CHEK COMFORT CURVE STRIP VI SCH ×4 (06:25→21:07)
--- NOTE | 2019-02-10 06:45 | NUR ---
NO C/O CHEST PAIN DURING THE NIGHT. NPO SINCE MIDNIGHT.
[2019-02-10] MEDS: IPRATROPIUM BROM 0.5 MG/2.5ML INH SOL HHN SCH ×3 (07:28→19:32)
[2019-02-10] MEDS: ALBUTEROL SULF 2.5 MG/0.5ML(0.5%) NEB SOLN HHN SCH ×3 (07:28→19:32)
--- NOTE | 2019-02-10 07:28 | NUR ---
Respiratory note: PT FOUND OFF HOSPITAL CPAP UNIT. NO RESPIRATORY DISTRESS NOTED.
[2019-02-10] MEDS ORDERED: LIDOCAINE 2%HCL (LOCAL ANESTH.) INJ 20ML MDV ONE (07:41)
[2019-02-10] MEDS ORDERED: IODIXANOL 320MG/ML 100ML BTL IV ONE (07:41)
[2019-02-10] MEDS ORDERED: ASPirin 325 MG TAB PO ONE (07:45)
--- NOTE | 2019-02-10 07:45 | NUR ---
Opening Shift Note Assumed care of patient alert and oriented x4. Patient sitting in bed visibly SOB and distressed. Patient states she "just got back from the bathroom and it was a workout". Patient on 3 L of O2 delivered by nasal canula sPO2 at 98%. Patient reports headache 8/10 pain. Unable to provide pain medication as patient has a scheduled angiogram at this time. quality assurance qa lab technician RN at bedside prepping patient for procedure, RN has been informed of pain. Signed: 02/10/19 at 0900 by DALTON JIMENEZ <Co-Signature Required> Co-Signed: 02/10/19 at 0900 by Debbie Hall RN
[2019-02-10] MEDS ORDERED: fentaNYL CITRATE 100 MCG/2 ML VL ONE (07:46)
[2019-02-10] MEDS ORDERED: MIDAZOLAM HCL 1MG/1ML-2 ML VIAL ONE (07:46)
[2019-02-10] MEDS ORDERED: ANGIOMAX 250 MG VIAL IV ONE (07:46)
[2019-02-10] MEDS ORDERED: SODIUM CHL 0.9% 50 ML ONE (07:47)
--- NOTE | 2019-02-10 08:00 | NUR ---
Patient down to dental laboratory technology teacher for procedure.
[2019-02-10] MEDS ORDERED: diphenhdrAMINE HCL 50 MG/1 ML VL ONE (08:16)
[2019-02-10] MEDS ORDERED: VERAPAMIL 2.5MG/ML INJ 2ML VIAL IV ONE (08:16)
[2019-02-10] MEDS ORDERED: TICAGRELOR 90 MG TAB ONE (08:32)
[2019-02-10] MEDS: ASPirin-EC 81 mg tab PO SCH (10:00)
--- NOTE | 2019-02-10 10:00 | NUR ---
PATIENT BACK ON MEDSURG/TELE FLOOR. PATIENT IS ALERT, CALM WITH NO S/S OF DISTRESS/SOB. NO C/O PAIN. VASC BAND ON LEFT WRIST IS INTACT. DEFLATION STARTED AT THIS TIME. DEFLATED 2ML. NO BLEEDING, NO REDNESS OR SWELLING NOTED. PATIENT TOLERATED WELL. POST CATH VITAL SIGNS BP 105/49, HR 98, RR16, SPO2 98%, T 97.9. WILL CONTINUE TO MONITOR Q1HR AND NEEDED.
[2019-02-10] MEDS: methylPREDNISolone SOD SUCC 40 MG/ML VL IV SCH ×3 (10:04→21:03)
[2019-02-10] MEDS: LEVOFLOXACIN 500MG 100 ML IV SCH (10:04)
[2019-02-10] MEDS: FLUoxetine HCL 20 MG CAP PO SCH (10:04)
[2019-02-10] MEDS: SPIRONOLACTONE 25 MG TAB PO SCH (10:04)
[2019-02-10] MEDS: ATORVASTATIN 20 MG TAB PO SCH (10:04)
[2019-02-10] MEDS: PANTOPRAZOLE 40 MG TAB PO SCH (10:04)
[2019-02-10] MEDS: METOPROLOL SUCCINATE XL 50 MG TAB PO SCH (10:05)
--- NOTE | 2019-02-10 11:05 | NUR ---
VASC BAND REMOVED VASC BAND ON LEFT WRIST REMOVED. NO BLEEDING, NO REDNESS OR SWELLING NOTED. SITE COVERED WITH STERILE GAUZE AND TEGADERM. PATIENT TOLERATED WELL. WILL CONTINUE TO MONITOR. Signed: 02/10/19 at 1349 by DALTON JIMENEZ <Co-Signature Required> Co-Signed: 02/10/19 at 1349 by Debbie Hall RN
[2019-02-10] MEDS ORDERED: guaiFENesin-DM 100/10mg/5ml SYR PO PRN (12:30)
[2019-02-10 13:33] LABS: Basophils # (auto) 0 uL; Eosinophils # (auto) 0 uL; Hematocrit 40.5 % (36.0-46.0); Hemoglobin 13.1 g/dL (12.2-16.2); Lymphocytes # (auto) 0.3 uL; Lymphocytes % (auto) 1.9 % (10.0-50.0); Mean Corpuscular Hemoglobin 31.4 pg (28.0-32.0); Mean Corpuscular Hgb Conc. 32.4 g/dL (32.0-36.0); Mean Corpuscular Volume 96.7 fL (80.0-100.0); Monocytes # (auto) 0.6 uL; Monocytes % (auto) 3.8 % (0.0-12.0); Neutrophils % (auto) 94.3 % (37.0-80.0); Platelet Count (auto) 189 10^3/uL (140-450); Red Blood Cells 4.19 10^6/uL (4.0-5.20); Red Cell Distribution Width 14.8 % (11.8-14.3); White Blood Cell 14.9 10^3/uL (4.4-10.8)
[2019-02-10 13:51] LABS: BUN/Creatinine Ratio 29.1; Calcium 8.5 mg/dL (8.5-10.1); Magnesium 2.3 mg/dL (1.6-2.6); Potassium 4.1 mmol/L (3.5-5.1)
--- NOTE | 2019-02-10 14:17 | NUR ---
NUTRITION ASSESSMENT NOTES Please refer to link notes of nutrition screen form filed under the intervention section of the plan of care for further details. Est. Needs: 1500 kcal to 1950 kcal (15-20 kcal/kgBW), 55 gms to 66 gms pro (1.0-1.2 gms/kgIBW: 55 kg). Will continue to monitor pertinent labs and reassess nutrient need prn Thank you. Addendum: 02/10/19 at [address] Amended: Links added.
--- NOTE | 2019-02-10 18:56 | NUR ---
CLOSING NOTE Patient is sitting on bed having dinner, on 3L NC sO2 99%. No S/S of distress SOB, or pain noted/reported. Call light within reach. Patient instructed on calling for assistance. Bed at lowest locked position and juan jose light within reach will endorse care to NOC nurse. Signed: 02/10/19 at 1900 by DALTON JIMENEZ SN <Co-Signature Required> Co-Signed: 02/10/19 at 1900 by Debbie Hall RN
[2019-02-10] MEDS ORDERED: CLOPIDOGREL 300 MG TAB PO ONE (19:00)
[2019-02-10] MEDS: ACETAMINOPHEN 325 MG TAB PO PRN (21:02)
[2019-02-11] MEDS: ALBUTEROL SULF 2.5 MG/0.5ML(0.5%) NEB SOLN HHN SCH ×3 (00:30→11:56)
[2019-02-11] MEDS: IPRATROPIUM BROM 0.5 MG/2.5ML INH SOL HHN SCH ×3 (00:31→11:56)
[2019-02-11 05:14] VITALS: BP 93/52
[2019-02-11] MEDS: FUROSEMIDE 40 MG TAB PO SCH (05:54)
[2019-02-11] MEDS: InsuLIN REG 1unit/0.01ml Soln (100units/ml) SC SCH ×2 (06:38→11:30)
[2019-02-11] MEDS: ACCU-CHEK COMFORT CURVE STRIP VI SCH ×2 (06:38→11:30)
[2019-02-11 06:56] LABS: Basophils # (auto) 0 uL; Basophils % (auto) 0.2 % (0.0-2.0); Eosinophils # (auto) 0 uL; Hematocrit 38.3 % (36.0-46.0); Hemoglobin 12.9 g/dL (12.2-16.2); Lymphocytes # (auto) 0.2 uL; Lymphocytes % (auto) 1.6 % (10.0-50.0); Mean Corpuscular Hemoglobin 31.8 pg (28.0-32.0); Mean Corpuscular Hgb Conc. 33.8 g/dL (32.0-36.0); Mean Corpuscular Volume 93.9 fL (80.0-100.0); Monocytes # (auto) 0.5 uL; Neutrophils # (auto) 11.8 uL; Neutrophils % (auto) 94.2 % (37.0-80.0); Platelet Count (auto) 164 10^3/uL (140-450); Red Blood Cells 4.07 10^6/uL (4.0-5.20); Red Cell Distribution Width 14.1 % (11.8-14.3); White Blood Cell 12.5 10^3/uL (4.4-10.8)
[2019-02-11 07:21] LABS: BUN/Creatinine Ratio 25.8; Calcium 8.4 mg/dL (8.5-10.1); Magnesium 2.5 mg/dL (1.6-2.6)
[2019-02-11 08:47] VITALS: BP 89/63
--- NOTE | 2019-02-11 09:06 | NUR ---
BLOOD PRESSURE REASSESSED BP 113/65 HEART RATE 114.
[2019-02-11] MEDS: LEVOFLOXACIN 500MG 100 ML IV SCH (09:49)
[2019-02-11] MEDS: METOPROLOL SUCCINATE XL 50 MG TAB PO SCH (09:49)
[2019-02-11] MEDS: PANTOPRAZOLE 40 MG TAB PO SCH (09:49)
[2019-02-11] MEDS: FLUoxetine HCL 20 MG CAP PO SCH (09:49)
[2019-02-11] MEDS: methylPREDNISolone SOD SUCC 40 MG/ML VL IV SCH (09:49)
[2019-02-11] MEDS: ATORVASTATIN 20 MG TAB PO SCH (09:49)
[2019-02-11] MEDS: ASPirin-EC 81 mg tab PO SCH (09:50)
[2019-02-11] MEDS: SPIRONOLACTONE 25 MG TAB PO SCH (09:50)
[2019-02-11] MEDS ORDERED: CLOPIDOGREL BISULFATE 75 MG TAB PO SCH (10:00)
[2019-02-11 11:59] VITALS: BP 114/70
[2019-02-11] MEDS ORDERED: ATOR20TA50 PO (12:28)
[2019-02-11] MEDS ORDERED: IPRIH IN (12:28)
[2019-02-11] MEDS ORDERED: LEVO250T19 PO (12:28)
[2019-02-11] MEDS ORDERED: METH4PAK PO (12:28)
[2019-02-11] MEDS ORDERED: ALBUAER3 IN (12:28)
[2019-02-11] MEDS ORDERED: CLOP75TA28 PO (12:28)
[2019-02-11] MEDS ORDERED: APIX2.5T PO (12:28)
--- NOTE | 2019-02-11 13:41 | NUR ---
CARDIOLOGY CLEARED FOR DISCHARGE PER DR CONNOR PATIENT CLEARED FOR DISCHARGE, PATIENT TO FOLLOW UP IN ONE TO TWO WEEKS
[2019-02-11 13:55] VITALS: BP 98/53
--- NOTE | 2019-02-11 15:10 | NUR ---
DISCHARGE NOTE PATIENT ALERT AND ORIENTED X4 GRANDSON AT BEDSIDE. ALL DISCHARGE INSTRUCTIONS GIVEN ALL QUESTIONS AND CONCERNS ADDRESSED/ ANSWERED, PATIENT VERBALIZED UNDERSTANDING. PER DISCHARGE NOTE PRESCRIPTIONS SENT TO PHARMACY ELECTRONICALLY PATIENT AWARE. HOME HEALTH SET UP PATIENT AWARE. IV REMOVED USING ASEPTIC TECHNIQUE PRESSURE DRESSING APPLIED PATIENT TOLERATED WELL . TELEBOX CLEANED REMOVED AND SENT TO ICU. PATIENT DENIES ALL PAIN, SOB OR DISTRESS. DRESSING TO RIGHT WRIST CLEAN DRY AND INTACT. PATIENT ASSISTED TO PERSONAL VEHICLE USING WHEELCHAIR
--- NOTE | 2019-02-11 17:05 | NUR ---
Discharge planning per SS consult, patient has orders for home health safety eval. Referral was sent to [facility], placed a follow up call, spoke with Isabel and was advised they will accept this patient and start of care will be within 24-48 hours. Advised patient was discharging today.
== END 2019-02-11 15:07 | disposition home health service (06) | DRG 246 ==
LOC: EDBD 10:06 → ER 10:06 → TELE 10:07 → TELE-WESTW 20:39
PROVIDERS: ADMIT Internal Medicine; ATTEND Internal Medicine
PROC: 5A09357 Assistance with Respiratory Ventilation, Less than 24 Consecutive Hours, Continuous Positive Airway Pressure (ICD-10-PCS; 2019-02-07)
PROC: 5A09357 Assistance with Respiratory Ventilation, Less than 24 Consecutive Hours, Continuous Positive Airway Pressure (ICD-10-PCS; 2019-02-08)
PROC: 5A09357 Assistance with Respiratory Ventilation, Less than 24 Consecutive Hours, Continuous Positive Airway Pressure (ICD-10-PCS; 2019-02-09)
PROC: 4A023N7 Measurement of Cardiac Sampling and Pressure, Left Heart, Percutaneous Approach (ICD-10-PCS; principal; 2019-02-10)
PROC: 027034Z Dilation of Coronary Artery, One Artery with Drug-eluting Intraluminal Device, Percutaneous Approach (ICD-10-PCS; 2019-02-10)
PROC: B211YZZ Fluoroscopy of Multiple Coronary Arteries using Other Contrast (ICD-10-PCS; 2019-02-10)
PROC: 5A09357 Assistance with Respiratory Ventilation, Less than 24 Consecutive Hours, Continuous Positive Airway Pressure (ICD-10-PCS; 2019-02-10)
PROC: 5A09357 Assistance with Respiratory Ventilation, Less than 24 Consecutive Hours, Continuous Positive Airway Pressure (ICD-10-PCS; 2019-02-11)
DX: I21.4 Non-ST elevation (NSTEMI) myocardial infarction (principal); J96.20 Acute and chronic respiratory failure, unspecified whether with hypoxia or hypercapnia; J44.1 Chronic obstructive pulmonary disease with (acute) exacerbation; I50.32 Chronic diastolic (congestive) heart failure; I25.110 Atherosclerotic heart disease of native coronary artery with unstable angina pectoris; I11.0 Hypertensive heart disease with heart failure; E66.01 Morbid (severe) obesity due to excess calories; Z88.6 Allergy status to analgesic agent; Z88.0 Allergy status to penicillin; Z88.8 Allergy status to other drugs, medicaments and biological substances; E11.9 Type 2 diabetes mellitus without complications; E78.5 Hyperlipidemia, unspecified; F32.9 Major depressive disorder, single episode, unspecified; I27.20 Pulmonary hypertension, unspecified; I34.0 Nonrheumatic mitral (valve) insufficiency; I48.91 Unspecified atrial fibrillation; K21.9 Gastro-esophageal reflux disease without esophagitis; Z85.038 Personal history of other malignant neoplasm of large intestine; Z85.3 Personal history of malignant neoplasm of breast; Z87.891 Personal history of nicotine dependence; Z99.81 Dependence on supplemental oxygen; Z68.38 Body mass index [BMI] 38.0-38.9, adult
CPT/HCPCS: 36415; 71046; 80048; 80053; 80061; 81001; 82962; 83735; 84484; 85025; 85610; 87040; 92928; 93005; 93306; 93458; 94640; 94660; 99291; C9113; G0378; J1815; J1956; J2250; Q9967

== ENCOUNTER 2021-02-15 14:52 | Emergency (ER) | payer OTHER ==
[~2021-02-15] VITALS: Ht 157.5 cm; Wt 79.4 kg
[~2021-02-15 14:52] MED LIST changes: +ALBUAER3 IN; +APIX2.5T PO; +ATOR20TA50 PO; +CLOP75TA28 PO; -GLIP-218 PO; +IPRIH IN; +LEVO250T19 PO; +METH4PAK PO; -METO-169 PO; +METO-289 PO; -NITR0.4D3; +NITR0.4D5; -RIVA20TA PO; -SIMV20TA90 PO
[2021-02-15 15:56] LABS: Basophils # (auto) 0.1 10 ^3/uL (0-0.2); Basophils % (auto) 0.9 % (0.0-2.0); Eosinophils # (auto) 0.2 10 ^3/uL (0-0.8); Eosinophils % (auto) 1.8 % (0.0-7.0); Hematocrit 36.2 % (36.0-46.0); Hemoglobin 11.7 g/dL (12.2-16.2); Lymphocytes # (auto) 0.9 10 ^3/uL (0.4-5.4); Lymphocytes % (auto) 10.2 % (10.0-50.0); Mean Corpuscular Hemoglobin 30.1 pg (28.0-32.0); Mean Corpuscular Hgb Conc. 32.2 g/dL (32.0-36.0); Mean Corpuscular Volume 93.5 fL (80.0-100.0); Monocytes # (auto) 0.5 10 ^3/uL (0-1.3); Monocytes % (auto) 5.6 % (0.0-12.0); Neutrophils # (auto) 6.8 10 ^3/uL (1.6-8.6); Neutrophils % (auto) 81.5 % (37.0-80.0); Red Blood Cells 3.87 10^6/uL (4.0-5.20); Red Cell Distribution Width 13.9 % (11.8-14.3); White Blood Cell 8.4 10^3/uL (4.4-10.8)
[2021-02-15 16:13] LABS: Albumin 3.3 g/dL (3.4-5.0); Calcium 7.8 mg/dL (8.5-10.1); Potassium 3.2 mmol/L (3.5-5.1)
[2021-02-15 16:18] LABS: BUN/Creatinine Ratio 18.9; Bilirubin, Total 0.7 mg/dL (0.2-1.0); Total Protein 6.8 g/dL (6.4-8.2)
[2021-02-15 17:06] LABS: Urine Bacteria FEW /hpf (None Seen); Urine Blood Negative /uL (Negative); Urine Hyaline Cast MOD /lpf (0 - 2); Urine Mucus FEW (None Seen); Urine Specific Gravity 1.013 (1.001-1.035); Urine WBC 6 /hpf (0 - 5)
[2021-02-15 17:51] VITALS: BP 130/85
== END 2021-02-15 18:18 | disposition home or self-care (01) ==
LOC: ER 14:52 → EDBD 14:52 → ER 18:18
DX: S96.912A Strain of unspecified muscle and tendon at ankle and foot level, left foot, initial encounter (principal); S00.03XA Contusion of scalp, initial encounter; R42 Dizziness and giddiness; N39.0 Urinary tract infection, site not specified; I48.91 Unspecified atrial fibrillation; J44.9 Chronic obstructive pulmonary disease, unspecified; E78.5 Hyperlipidemia, unspecified; I25.2 Old myocardial infarction; I13.0 Hypertensive heart and chronic kidney disease with heart failure and stage 1 through stage 4 chronic kidney disease, or unspecified chronic kidney disease; E11.22 Type 2 diabetes mellitus with diabetic chronic kidney disease; N18.9 Chronic kidney disease, unspecified; I50.9 Heart failure, unspecified; Z20.822 Contact with and (suspected) exposure to COVID-19; Z79.899 Other long term (current) drug therapy; Z88.5 Allergy status to narcotic agent; Z88.0 Allergy status to penicillin; W18.39XA Other fall on same level, initial encounter; Y93.89 Activity, other specified; Y92.89 Other specified places as the place of occurrence of the external cause; Y99.8 Other external cause status
CPT/HCPCS: 36415; 70450; 73610; 80053; 81001; 85025; 87426; 93005

== ENCOUNTER 2021-04-26 10:12 | Inpatient (IN) | payer OTHER ==
[~2021-04-26] VITALS: Ht 157.5 cm; Wt 81.6 kg
[2021-04-26] MEDS ORDERED: cefTRIAXone 1GM/50ML D5W 50 ML IV ONE (10:45)
[2021-04-26] MEDS ORDERED: DexAMETHasone SOD PHOS 10MG/1ML VIAL INJ IV ONE ×2 (10:45→11:15)
[2021-04-26] MEDS ORDERED: ONDANSETRON HCL 4 MG/2 ML VIAL IV ONE (10:45)
[2021-04-26] MEDS ORDERED: HYDROmorphone HCL 2 MG/ML VL IV ONE (10:45)
[2021-04-26 11:15] LABS: Basophils # (auto) 0 10 ^3/uL (0-0.2); Basophils % (auto) 0.2 % (0.0-2.0); Eosinophils # (auto) 0 10 ^3/uL (0-0.8); Eosinophils % (auto) 0.1 % (0.0-7.0); Hematocrit 35.3 % (36.0-46.0); Hemoglobin 11.8 g/dL (12.2-16.2); Lymphocytes # (auto) 0.3 10 ^3/uL (0.4-5.4); Lymphocytes % (auto) 7.3 % (10.0-50.0); Mean Corpuscular Hemoglobin 30.2 pg (28.0-32.0); Mean Corpuscular Hgb Conc. 33.6 g/dL (32.0-36.0); Mean Corpuscular Volume 89.9 fL (80.0-100.0); Monocytes # (auto) 0.4 10 ^3/uL (0-1.3); Monocytes % (auto) 9.8 % (0.0-12.0); Neutrophils # (auto) 3.4 10 ^3/uL (1.6-8.6); Neutrophils % (auto) 82.6 % (37.0-80.0); Nucleated Red Blood Cells % 0.1 %; Red Blood Cells 3.92 10^6/uL (4.0-5.20); Red Cell Distribution Width 14.7 % (11.8-14.3); White Blood Cell 4.2 10^3/uL (4.4-10.8)
[2021-04-26 11:30] LABS: Potassium 3.1 mmol/L (3.5-5.1)
[2021-04-26 11:52] LABS: BUN/Creatinine Ratio 14.7; Bilirubin, Total 0.6 mg/dL (0.2-1.0); Calcium 8.1 mg/dL (8.5-10.1); Total Protein 6.7 g/dL (6.4-8.2)
[2021-04-26] MEDS ORDERED: AMIODARONE HCL 150 MG in D5W 5% 100 ML IV ONE (13:45)
[2021-04-26] MEDS ORDERED: AMIODARONE 450mg/250ml AE 250 ML IV SCH (13:45)
[2021-04-26] MEDS ORDERED: NITROGLYCERIN 0.4 MG SL TAB SL PRN (14:15)
[2021-04-26] MEDS ORDERED: MORPHINE SULFATE INJECTION 2 MG/ML SYRG IV PRN (14:15)
[2021-04-26] MEDS ORDERED: REMDESIVIR PER PHARMACY 0 ML IV SCH (14:15)
[2021-04-26] MEDS: DOXYCYCLINE 100MG/250ML 250 ML IV SCH (16:00)
[2021-04-26] MEDS ORDERED: REMDESIVIR 200 MG in NS 210ml LOADING DOSE ADULT IV ONE (17:00)
[2021-04-26] MEDS: ALBUTEROL SULF HFA 90MCG INH 200DOSE IN PRN (18:48)
[2021-04-26] MEDS: BUDESONIDE (INHALATION) 180 MCG IH IN SCH (18:48)
[2021-04-26] MEDS: AMIODARONE 450mg/250ml AE 250 ML IV SCH (19:50)
[2021-04-26 21:00] VITALS: BP 141/75
[2021-04-27] VITALS: BP 116/66
[2021-04-27 02:00] VITALS: BP 109/69
[2021-04-27] MEDS: DOXYCYCLINE 100MG/250ML 250 ML IV SCH ×2 (03:15→14:15)
[2021-04-27 05:14] LABS: Urine Bacteria NONE SEEN /hpf (None Seen); Urine Blood Negative /uL (Negative); Urine Hyaline Cast FEW /lpf (0 - 2); Urine Mucus FEW (None Seen); Urine Specific Gravity 1.034 (1.001-1.035); Urine WBC 5 /hpf (0 - 5)
[2021-04-27] MEDS: BUDESONIDE (INHALATION) 180 MCG IH IN SCH ×2 (07:08→19:05)
[2021-04-27] MEDS: ALBUTEROL SULF HFA 90MCG INH 200DOSE IN PRN ×2 (07:08→19:05)
[2021-04-27 07:32] LABS: Basophils # (auto) 0 10 ^3/uL (0-0.2); Basophils % (auto) 0.7 % (0.0-2.0); Eosinophils # (auto) 0 10 ^3/uL (0-0.8); Hematocrit 34.8 % (36.0-46.0); Hemoglobin 11.5 g/dL (12.2-16.2); Lymphocytes # (auto) 0.1 10 ^3/uL (0.4-5.4); Lymphocytes % (auto) 2.5 % (10.0-50.0); Mean Corpuscular Hemoglobin 29.6 pg (28.0-32.0); Mean Corpuscular Hgb Conc. 32.9 g/dL (32.0-36.0); Mean Corpuscular Volume 89.8 fL (80.0-100.0); Monocytes # (auto) 0.3 10 ^3/uL (0-1.3); Monocytes % (auto) 6.4 % (0.0-12.0); Neutrophils % (auto) 90.4 % (37.0-80.0); Red Blood Cells 3.87 10^6/uL (4.0-5.20); Red Cell Distribution Width 14.9 % (11.8-14.3); White Blood Cell 4.4 10^3/uL (4.4-10.8)
[2021-04-27 07:34] LABS: INR 1.25 (0.9-1.15); Partial Thromboplastin Time 30.6 sec (23.6-33.0)
[2021-04-27 07:39] LABS: BUN/Creatinine Ratio 16.9; Calcium 8.1 mg/dL (8.5-10.1)
[2021-04-27 07:44] LABS: Bilirubin, Total 0.4 mg/dL (0.2-1.0); Total Protein 6.7 g/dL (6.4-8.2)
[2021-04-27] MEDS ORDERED: ENOXAPARIN SOD 40 MG/0.4 ML SYRINGE SC SCH (10:00)
[2021-04-27] MEDS: DexAMETHasone SOD PHOS 10MG/1ML VIAL INJ IV SCH (10:30)
[2021-04-27] MEDS: ZINC SULFATE 220mg CAP or TAB PO SCH (10:31)
[2021-04-27] MEDS: ASCORBIC ACID 1,000 MG TAB PO SCH (10:31)
[2021-04-27] MEDS: CHOLECALCIFEROL (VITD3) 2,000 UNIT CAP/TAB PO SCH (10:31)
[2021-04-27] MEDS: FAMOTIDINE 20 MG TAB PO SCH (10:31)
[2021-04-27 11:13] VITALS: BP 122/75
[2021-04-27 13:00] VITALS: BP 122/75
[2021-04-27] MEDS ORDERED: dilTIAZem 25 MG/5 ML VIAL IV ONE (13:30)
[2021-04-27 16:00] VITALS: BP 145/88
[2021-04-27] MEDS: REMDESIVIR 100mg 100 MG in SODIUM CHL 0.9% 230 ML IV SCH (16:06)
[2021-04-27] MEDS: AMIODARONE 450mg/250ml AE 250 ML IV SCH (16:06)
[2021-04-27] MEDS ORDERED: guaiFENesin-DM 100/10mg/5ml SYR PO PRN (16:15)
[2021-04-27] MEDS: ONDANSETRON HCL 4 MG/2 ML VIAL IV PRN ×2 (16:34→23:22)
[2021-04-27] MEDS: ENOXAPARIN SOD 80 MG/0.8ML SYRINGE SC SCH (18:18)
[2021-04-27] MEDS: POTASSIUM CHL 20 Meq TABLET PO ONE ×2 (18:30→18:35)
[2021-04-27] MEDS: METOPROLOL TARTRATE 25 MG TAB PO SCH (20:31)
[2021-04-27 22:00] VITALS: BP 113/75
[2021-04-27] MEDS: NYSTATIN TOPICAL POWDER 15GM TOP SCH (22:43)
[2021-04-28] VITALS (10 sets, daily range): BP systolic 87–137; BP diastolic 58–92
[2021-04-28] MEDS: AMIODARONE 450mg/250ml AE 250 ML IV SCH (01:45)
[2021-04-28] MEDS: DOXYCYCLINE 100MG/250ML 250 ML IV SCH ×2 (03:30→15:00)
[2021-04-28] MEDS: ONDANSETRON HCL 4 MG/2 ML VIAL IV PRN (04:45)
[2021-04-28 06:06] LABS: INR 1.42 (0.9-1.15)
[2021-04-28 06:14] LABS: Potassium 3.3 mmol/L (3.5-5.1)
[2021-04-28 06:18] LABS: Albumin 3.1 g/dL (3.4-5.0); BUN/Creatinine Ratio 24.1; Calcium 8.7 mg/dL (8.5-10.1)
[2021-04-28 06:21] LABS: Bilirubin, Total 0.5 mg/dL (0.2-1.0); Total Protein 6.6 g/dL (6.4-8.2)
[2021-04-28] MEDS: ENOXAPARIN SOD 80 MG/0.8ML SYRINGE SC SCH ×2 (06:38→17:59)
[2021-04-28] MEDS: BUDESONIDE (INHALATION) 180 MCG IH IN SCH (07:02)
[2021-04-28] MEDS: ALBUTEROL SULF HFA 90MCG INH 200DOSE IN PRN (07:02)
[2021-04-28] MEDS: NYSTATIN TOPICAL POWDER 15GM TOP SCH (08:36)
[2021-04-28] MEDS: DexAMETHasone SOD PHOS 10MG/1ML VIAL INJ IV SCH (08:36)
[2021-04-28] MEDS: CHOLECALCIFEROL (VITD3) 2,000 UNIT CAP/TAB PO SCH (08:37)
[2021-04-28] MEDS: ZINC SULFATE 220mg CAP or TAB PO SCH (08:37)
[2021-04-28] MEDS: FAMOTIDINE 20 MG TAB PO SCH (08:37)
[2021-04-28] MEDS: ASCORBIC ACID 1,000 MG TAB PO SCH (08:37)
[2021-04-28] MEDS: METOPROLOL TARTRATE 25 MG TAB PO SCH (08:38)
[2021-04-28] MEDS ORDERED: AMIODARONE HCL 200 MG TAB PO SCH (10:00)
[2021-04-28] MEDS: AMIODARONE HCL 200 MG TAB PO ONE ×2 (11:54→17:57)
[2021-04-28] MEDS ORDERED: ETOMIDATE (2MG/ML) 20ML VIAL IV ONE (12:37)
[2021-04-28] MEDS ORDERED: SUCCINYLCHOLINE CHLORIDE 20 MG/ML 10ML VIAL IV ONE (12:37)
[2021-04-28] MEDS ORDERED: ROCURONIUM 10MG/ML 10ML VIAL IV ONE (12:38)
[2021-04-28] MEDS ORDERED: MIDAZOLAM HCL 5 MG/ML-1ML VIAL ONE ×2 (13:07→13:19)
[2021-04-28] MEDS ORDERED: D5W/SOD CHLO 0.9% 1,000 ML IV SCH (13:30)
[2021-04-28] MEDS ORDERED: NOREPINEPHRINE 8 MG/250ML KIT 250 ML IV ONE (13:52)
[2021-04-28 14:57] LABS: Calcium 8.5 mg/dL (8.5-10.1); Potassium 4.6 mmol/L (3.5-5.1)
[2021-04-28 14:59] LABS: BUN/Creatinine Ratio 18.6; Bilirubin, Total 0.7 mg/dL (0.2-1.0); Total Protein 6.5 g/dL (6.4-8.2)
[2021-04-28] MEDS ORDERED: MIDAZOLAM DRIP 50 mg/50mL 50 ML IV SCH (15:00)
[2021-04-28] MEDS ORDERED: ALBUTEROL SULF 2.5 MG/0.5ML(0.5%) NEB SOLN NEB PRN (15:00)
[2021-04-28] MEDS ORDERED: NOREPINEPHRINE 8 MG/250ML KIT 250 ML IV SCH (15:00)
[2021-04-28] MEDS ORDERED: DOXYCYCLINE 100MG/250ML 250 ML IV ONE (15:01)
[2021-04-28] MEDS ORDERED: MIDAZOLAM DRIP 50 mg/50mL 50 ML IV ONE (15:02)
[2021-04-28] MEDS: REMDESIVIR 100mg 100 MG in SODIUM CHL 0.9% 230 ML IV SCH (17:59)
[2021-04-28] MEDS ORDERED: BUDESONIDE (INHALATION) 0.5 MG/2 ML NEB NEB SCH (22:00)
[2021-04-28] MEDS ORDERED: METOPROLOL TARTRATE 25 MG TAB PO SCH (22:00)
[2021-04-28] MEDS ORDERED: EPINEPHrine HCL 250 ML IV ONE (23:55)
[2021-04-28] MEDS ORDERED: EPINEPHrine HCL 1 MG/10 ML SYRG IV ONE (23:59)
[2021-04-28] MEDS ORDERED: AMIODARONE HCL (50 MG/ ML) 3 ML VIAL IV ONE (23:59)
[2021-04-28] MEDS ORDERED: SODIUM BICARBONATE 8.4% INJ 50ML SYRINGE IV ONE (23:59)
[2021-04-29] MEDS ORDERED: AMIODARONE HCL 200 MG TAB PO SCH (10:00)
== END 2021-04-29 | DRG 177 ==
LOC: ER 10:12 → EDBD 10:12 → TELE 14:12 → TELE-EAST 04-27 08:11 → ICU WEST 04-28 13:30
PROVIDERS: ADMIT Hospitalist; ATTEND Hospitalist
PROC: 5A09357 Assistance with Respiratory Ventilation, Less than 24 Consecutive Hours, Continuous Positive Airway Pressure (ICD-10-PCS; principal; 2021-04-26)
PROC: XW033E5 Introduction of Remdesivir Anti-infective into Peripheral Vein, Percutaneous Approach, New Technology Group 5 (ICD-10-PCS; 2021-04-26)
PROC: 06HY33Z Insertion of Infusion Device into Lower Vein, Percutaneous Approach (ICD-10-PCS; 2021-04-28)
PROC: 0BH17EZ Insertion of Endotracheal Airway into Trachea, Via Natural or Artificial Opening (ICD-10-PCS; 2021-04-28)
DX: U07.1 COVID-19 (principal); J12.82 Pneumonia due to coronavirus disease 2019; J96.21 Acute and chronic respiratory failure with hypoxia; J44.1 Chronic obstructive pulmonary disease with (acute) exacerbation; I48.20 Chronic atrial fibrillation, unspecified; J44.0 Chronic obstructive pulmonary disease with (acute) lower respiratory infection; J98.11 Atelectasis; E66.01 Morbid (severe) obesity due to excess calories; E11.9 Type 2 diabetes mellitus without complications; E78.5 Hyperlipidemia, unspecified; I11.0 Hypertensive heart disease with heart failure; I25.10 Atherosclerotic heart disease of native coronary artery without angina pectoris; I50.9 Heart failure, unspecified; I46.9 Cardiac arrest, cause unspecified; Z79.01 Long term (current) use of anticoagulants; Z82.49 Family history of ischemic heart disease and other diseases of the circulatory system; Z80.3 Family history of malignant neoplasm of breast; Z83.3 Family history of diabetes mellitus; Z80.0 Family history of malignant neoplasm of digestive organs; Z79.02 Long term (current) use of antithrombotics/antiplatelets; Z85.3 Personal history of malignant neoplasm of breast; Z88.5 Allergy status to narcotic agent; Z88.0 Allergy status to penicillin; Z88.8 Allergy status to other drugs, medicaments and biological substances; I25.2 Old myocardial infarction; Z68.32 Body mass index [BMI] 32.0-32.9, adult
CPT/HCPCS: 36415; 36600; 71045; 80053; 81001; 82306; 82728; 82805; 83036; 84484; 85025; 85379; 85610; 85730; 86141; 87070; 87205; 87426; 93005; 93306; 94002; 94003; 94640; 94660; 96365; 96367; 96375; G0378; J0171; J0330; J0696; J1100; J2250; J2405; J3490; J7042; J7060